=== PATIENT | male | born 1980 | race Caucasian/White ===

== ENCOUNTER 2018-12-14 14:14 | Emergency (ER) | payer MEDICAID, SELFPAY ==
[2018-12-14 14:15] VITALS: BP 133/85; PULSE 116; RESP 15; TEMP 36.6; O2SAT 97; BMI 30.8
--- NOTE | 2018-12-14 14:30 | EKG12_ITS ---
Test Reason : CP Blood Pressure : / mmHG Vent. Rate : 092 BPM Atrial Rate : 092 BPM P-R Int : 160 ms QRS Dur : 100 ms QT Int : 348 ms P-R-T Axes : 042 -32 011 degrees QTc Int : 430 ms Normal sinus rhythm Left axis deviation Minimal voltage criteria for LVH, may be normal variant Cannot rule out Anterior infarct , age undetermined Abnormal ECG Confirmed by REYNOLD ANDRADE, CHRISTOPHER ([id number]), desk editor CELENA NAYLOR ([id number]) on 12/20/2018 10:29:01 AM Referred By: NARAYAN Confirmed By:NILO FLAHERTY MD
--- NOTE | 2018-12-14 14:30 | RAD_ITS ---
STUDY: X-RAY CHEST REASON FOR EXAM: Male, 38 years old. Left-sided chest pain. TECHNIQUE: Single AP portable view of the chest. COMPARISON: Comparison is made with prior examination dated December 16, 2015. FINDINGS: EKG electrodes are seen. The lungs are clear and expanded. There is no demonstrated pleural abnormality. Normal size heart. Normal mediastinum and alvaro. Normal visualized pulmonary arteries. Normal visualized aortic arch and descending thoracic aorta. Normal visualized thoracic spine. Normal visualized ribs, clavicles, and shoulders. There is no demonstrated abnormality of the visualized soft tissue structures of the upper abdomen. RAD/Chest 1 View (Portable) IMPRESSION: Normal x-ray examination of the chest. Electronically Signed: Roberto Do, at 15:14 EDT , Service support ,
[2018-12-14 15:03] LABS: Absolute Lymphocyte Count 1.98 X10^3/uL (0.83-4.51); Absolute Neutrophil Count 2.6 X10^3/uL (2.0-7.7); Basophil# 0.03 X10^3/uL; Basophil% 0.6 % (0-1); Eosinophil# 0.08 X10^3/uL; Eosinophils% 1.6 % (0-5); Hematocrit 49.8 % (40-54); Hemoglobin 16.4 g/dL (13.0-16.5); Lymphocyte # 1.98 X10^3/ul (4.0); Lymphocyte % 39.8 % (19-41); Mean Corp Hgb Conc 32.9 g/dL (32-36); Mean Corpuscular Hgb 28.8 pg (27.0-32.0); Mean Corpuscular Volume 87.4 fL (80-94); Mean Platelet Vol. 9.1 fl (6.2-12.0); Monocyte# 0.23 X10^3/uL; Monocyte% 4.6 % (0-10); NRBC Flagged by Analyzer 0 % (0-5); Neutrophil # 2.64 X10^3/uL (2.7-7.7); Platelet Count 211 K/mm3 (150-450); RBC Distribution Width CV 12.3 % (11.6-14.6); RBC Distribution Width SD 38.9 fl (35.1-43.9)
[2018-12-14] MEDS: 0.9% Normal Saline 1,000 ML 150 ML IV (15:07)
[2018-12-14] MEDS: Aspirin 81 MG TAB.CHEW 324 MG PO (15:07)
[2018-12-14 15:08] VITALS: O2SAT 92
[2018-12-14 15:16] VITALS: BP 131/90; PULSE 92; RESP 17; O2SAT 92
[2018-12-14 15:24] LABS: Anion Gap 4 (5-15); BUN 15 mg/dL (7-18); BUN/Creat Ratio 13.6 RATIO (10-20); Calcium,Total 9.6 mg/dL (8.5-10.1); Chloride 106 mmol/L (98-107); EST Glomerular Filtration Rate 80 mL/min (>60); Est Glom Filt Rate - Afr Amer 97 mL/min (>60); Glucose 135 mg/dL (74-106); Sodium Level 139 mmol/L (136-145)
--- NOTE | 2018-12-14 15:40 | ED.DCSUM_ITS ---
- ER Visit Summary Date of Service: 12/14/18 Chief Complaint: [Chest pain] History of Present Illness: The patient is a 38 M [resents to the emergency department complaint of chest discomfort 2 days. Patient states he will have intermittent discomfort that he describes as some mild tightness lasting a coup le of minutes and will recur from time to time. Denies any radiation of the pain. Patient states last night he felt like when he was lying on his side it was worse. He denies any vomiting or diaphoresis. He is never had discomfort like this before. Patient denies recent travel or surgery. Patient has history of high cholesterol. He denies fever or cough. Patient not having any discomfort currently.] Physical Examination: [HEENT-PERRLA, EOMI. Cranial nerves II through XII grossly intact. TMs clear. Mucous membranes moist. No adenopathy. Cardiovascular-regular rate and rhythm without murmur or ectopy Lungs-clear to auscultation, chest wall stable without crepitus or subcu emphysema Abdomen-normoactive bowel sounds, soft, nontender, no rebound or rigidity, no peritoneal signs. Extremities-intact ?4, normal range of motion, normal pulses, atraumatic] Test Results: [EKG obtained on arrival shows sinus rhythm with a ventricular rate of 92 bpm with LVH criteria. CBC with differential was normal. Chemistries were normal. Troponin was less than 0.015. Chest x-ray was normal. D-dimer was normal.] Emergency Department Course and Treatment: [Patient had an IV line established and placed on cardiac cath lab radiology technologist. Patient was given 4 baby aspirin p.o.] Treatment Plan: [Patient's chest pains very atypical and feel he is very low risk. His heart score was a 1. Patient's HARRY risk score was 0.] Disposition: [Discharged home in stable condition. Patient advised to follow-up with primary care physician 3 to 5 days. Patient to return if worsening or persistent pain. Patient to return if exertional discomfort or dyspnea.] Impression: [Chest pain-etiology uncertain] This note was generated with Humansized dictation software. It may contain incorrect words, spelling, and punctuation that were not noted in review of the chart prior to signing ED Disposition - Plan for ED Patient: Referrals: Jani Anna [Primary Care Provider] -
--- NOTE | 2018-12-14 15:57 | ED.DEP ---
ED Disposition - Plan for ED Patient: Instructions: CHEST PAIN, Uncertain Cause Referrals: Jani Anna [Primary Care Provider] - 3-5 Days
[2018-12-14 16:02] VITALS: BP 121/67; PULSE 52; RESP 16; O2SAT 97
== END 2018-12-14 16:03 | disposition home or self-care (01) ==
LOC: ED 14:55
PROVIDERS: Emergency Provider Emergency Medicine; Family Provider Internal Medicine; PCP Internal Medicine
DX: R07.89 Other chest pain (principal); E78.00 Pure hypercholesterolemia, unspecified
CPT/HCPCS: 71045; 80048; 84484; 85025; 85379; 93005; 96360; 96361; 99285; J7030; A4216